=== PATIENT | female | born 1990 | race Caucasian/White ===

== ENCOUNTER → 2018-05-22 16:25 | Outpatient (CLI) | payer OTHER, SELFPAY ==
[2018-05-22 18:00] LABS: Basophils % 0.3 % (0.1-2.0); Eosinophils # 0.2 K/mm3 (0.0-0.4); Lymphocytes # 1.7 K/mm3 (0.7-4.5); Lymphocytes % 27.3 K/mm3 (10-50); Mean Corpuscular HGB Conc 33.2 g/dL (31.8-35.4); Mean Corpuscular Hemoglobin 28.8 pg (27.0-31.2); Mean Corpuscular Volume 86.7 fl (81-99); Mean Platelet Volume 7.5 fl (7.4-10.4); Monocytes # 0.3 K/mm3 (0.1-1.0); Monocytes % 4.6 % (1.7-9.3); Neutrophils # 4.1 K/mm3 (1.8-7.8); Neutrophils % 64.9 % (37.0-80.0); Platelet Count 227 K/mm3 (142-424); White Blood Count 6.4 K/mm3 (4.8-10.8)
[2018-05-22 19:54] LABS: Thyroid Stimulating Hormone 2.01 uIU/ml (0.358-3.740)
[2018-05-24 12:40] LABS: HIV Screen 4th Generation wRfx Non Reactive (Non Reactive); Hepatitis B Surface Antigen Negative (Negative); Rapid Plasma Reagin Ab Titer Non Reactive (NonRea<1:1); Rubella Antibodies, IgG 2.76 index (Immune >0.99)
== END ==
PROVIDERS: Visit Provider Obstetrics & Gynecology
DX: Z34.90 Encounter for supervision of normal pregnancy, unspecified, unspecified trimester (principal)
CPT/HCPCS: 36415; 84443; 85025; 86592; 86703; 86762; 86850; 87340; G0432

== ENCOUNTER → 2018-05-29 17:11 | Outpatient (CLI) | payer OTHER, SELFPAY ==
[2018-05-29 19:11] LABS: Amphetamine/Metha Screen,Urine Negative ng/mL (<1000); Barbiturates Screen,Urine Negative ng/mL (<200); Benzodiazepines Screen,Urine Negative ng/mL (<200); Cannabinoid Screen,Urine Negative ng/mL (<50); Cocaine Screen,Urine Negative ng/mL (<300); Methadone Screen,Urine Negative ng/mL (<300); Opiate Screen,Urine Negative ng/mL (<300); Phencyclidine Screen,Urine Negative ng/mL (<25)
== END ==
PROVIDERS: Visit Provider Obstetrics & Gynecology
DX: Z34.90 Encounter for supervision of normal pregnancy, unspecified, unspecified trimester (principal)
CPT/HCPCS: 80305

== ENCOUNTER → 2018-09-25 09:32 | Outpatient (CLI) | payer OTHER, SELFPAY ==
[2018-09-25 10:16] LABS: Glucose,Fasting 86 mg/dL (60-105)
[2018-09-25 11:28] LABS: Glucose 1 Hour 120 mg/dL (74-106)
== END ==
PROVIDERS: Visit Provider Obstetrics & Gynecology
DX: Z34.90 Encounter for supervision of normal pregnancy, unspecified, unspecified trimester (principal)
CPT/HCPCS: 36415; 82951

== ENCOUNTER 2018-10-03 17:57 | Outpatient (CLI) | payer OTHER, SELFPAY ==
[2018-10-03 18:10] VITALS: BMI 30.2
[2018-10-03 18:19] VITALS: BP 120/68; PULSE 98; RESP 20; TEMP 36.6; O2SAT 100
[2018-10-03 18:32] LABS: Microscopic, Urine URINE MICROSCOPIC (MICROSCOPIC)
[2018-10-03 18:34] LABS: Appearance,Urine CLEAR (Clear); Bilirubin,Urine Negative (Negative); Blood, Urine Negative (Negative); Color,Urine YELLOW (Yellow); Glucose,Urine (UA) Negative (Negative); Ketones,Urine Negative (Negative); Leukocyte Esterase,Urine Negative (Negative); Nitrate,Urine Negative (Negative); PH,Urine 5.5 (5.0-8.5); Protein,Urine Negative (Negative); Specific Gravity, Urine >= 1.030 (1.005-1.030); Urobilinogen,Urine 0.2 EU/dl (0.2)
[2018-10-03 18:42] LABS: Amphetamine/Metha Screen,Urine Negative ng/mL (<1000); Barbiturates Screen,Urine Negative ng/mL (<200); Benzodiazepines Screen,Urine Negative ng/mL (<200); Cannabinoid Screen,Urine Negative ng/mL (<50); Cocaine Screen,Urine Negative ng/mL (<300); Methadone Screen,Urine Negative ng/mL (<300); Opiate Screen,Urine Negative ng/mL (<300); Phencyclidine Screen,Urine Negative ng/mL (<25)
[2018-10-03 19:02] LABS: Fetal Fibronectin (Rapid) Negative (Negative)
[2018-10-03 19:09] LABS: Bacteria,Urine 2+ /lpf; RBC,Urine Occasional #/hpf (0-3)
[2018-10-10 06:46] LABS: Buprenorphine, Urine Positive (Cutoff=10)
== END 2018-10-03 19:42 | disposition home or self-care (01) ==
LOC: OBOUT 18:00 → OB 18:00
PROVIDERS: PCP Nurse Practitioner Family; Visit Provider Nurse Practitioner Obstetrics & Gynecology
DX: O26.893 Other specified pregnancy related conditions, third trimester (principal); Z3A.31 31 weeks gestation of pregnancy; R10.9 Unspecified abdominal pain
CPT/HCPCS: 59025; 80305; 80307; 81001; 82731; 87086

== ENCOUNTER → 2018-10-30 14:05 | Outpatient (CLI) | payer OTHER, SELFPAY | PROVIDERS: Visit Provider Obstetrics & Gynecology | DX: Z34.90 Encounter for supervision of normal pregnancy, unspecified, unspecified trimester (principal) | CPT/HCPCS: 86403 ==

== ENCOUNTER → 2018-11-06 12:50 | Outpatient (CLI) | payer OTHER, SELFPAY ==
--- NOTE | 2018-11-06 12:52 | US_ITS ---
US OB biophysical profile: Indication: ITS.REASON: weight loss in third trimester ORDERING PHYSICIAN: Dakotah Moore MD PATIENT AGE: 28 years FINDINGS: The following parameters are obtained: Average ultrasound age is 35 weeks 6 days. Estimated due date by ultrasound is 12/05/2018. Estimated weight is 2746 g which is 36 percentile BPD: 36 weeks 0 days OFD: 37 weeks 2 days HC: 35 weeks 6 days AC: 36 weeks 1 day FL: 35 weeks 0 days heart rate: 132 bpm. HC/AC: 0.99 Cephalic index: 79% FL/BPD: 77% FL/AC: 21% Amniotic fluid index: 14 cm Qualitative AFV: 2 breathing movements: 2 Gross body movements: 2 Tone: 2 Biophysical profile score: 8/8 No obvious anomalies evident. Placenta: Posterior and grade 1 Cervix: Appears closed and measures 3.4 cm IMPRESSION: There is a single live fetus which is in cephalic presentation with an average ultrasound age of 35 weeks and 6 days. All parameters correlate. Estimated weight is 2746 g which is 36 percentile Biophysical profile is 8 of 8 with normal amniotic fluid volume
== END ==
PROVIDERS: PCP Obstetrics & Gynecology; Visit Provider Obstetrics & Gynecology
DX: Z34.90 Encounter for supervision of normal pregnancy, unspecified, unspecified trimester (principal)
CPT/HCPCS: 76815; 76819

== ENCOUNTER 2018-11-15 13:49 | Inpatient (IN) ==
[2018-11-15 14:28] LABS: Basophils % 0.3 % (0.1-2.0); Eosinophils # 0.1 K/mm3 (0.0-0.4); Eosinophils % 0.9 % (0.1-12.0); Hematocrit 34.5 % (37.0-47.0); Hemoglobin 11.9 g/dL (12.2-16.2); Lymphocytes # 1.7 K/mm3 (0.7-4.5); Lymphocytes % 20.7 % (10-50); Mean Corpuscular HGB Conc 34.6 g/dL (31.8-35.4); Mean Corpuscular Hemoglobin 28.2 pg (27.0-31.2); Mean Corpuscular Volume 81.5 fl (81-99); Monocytes # 0.3 K/mm3 (0.1-1.0); Monocytes % 3.2 % (1.7-9.3); Neutrophils # 6.1 K/mm3 (1.8-7.8); Neutrophils % 74.8 % (37.0-80.0); Platelet Count 301 K/mm3 (142-424); Red Blood Count 4.24 M/mm3 (4.20-5.40); Red Cell Distribution Width 12.7 % (11.5-17.5); White Blood Count 8.2 K/mm3 (4.8-10.8)
[2018-11-15 14:47] LABS: Microscopic, Urine URINE MICROSCOPIC (MICROSCOPIC)
[2018-11-15 14:52] LABS: Appearance,Urine CLEAR (Clear); Blood, Urine Negative (Negative); Color,Urine YELLOW (Yellow); Glucose,Urine (UA) Negative (Negative); Ketones,Urine TRACE (Negative); Leukocyte Esterase,Urine Negative (Negative); Protein,Urine TRACE (Negative); Specific Gravity, Urine >= 1.030 (1.005-1.030)
[2018-11-15 14:59] LABS: Bilirubin,Urine 1+ (Negative)
[2018-11-15 15:17] LABS: Amphetamine/Metha Screen,Urine Negative ng/mL (<1000); Barbiturates Screen,Urine Negative ng/mL (<200); Benzodiazepines Screen,Urine Negative ng/mL (<200); Cannabinoid Screen,Urine Negative ng/mL (<50); Cocaine Screen,Urine Negative ng/mL (<300); Methadone Screen,Urine Negative ng/mL (<300); Opiate Screen,Urine Negative ng/mL (<300); Phencyclidine Screen,Urine Negative ng/mL (<25)
[2018-11-15 16:00] LABS: Squamous Epithelial Cell,Urine Occasional #/hpf (0-5); WBC,Urine Occasional #/hpf (0-3)
[2018-11-15 16:01] LABS: Bacteria,Urine 1+ /lpf; Mucus,Urine Trace /lpf
--- NOTE | 2018-11-15 16:18 | Progress Note ---
[facility] Anesthesia Checklist - Patient Identification Patient Identification: Arm Band, Verbal (Name & ) - Structural Data Admitted From: Inpatient Planned Operative Procedure/s: csection Consent for Planned Operative Procedure(s) Verified: Yes Verified Documents: History and Physical - NPO Status Verified Time NPO: 00:00 - Additional verifications Patient : Yes Anesthesia Reactions: No Hx Blood Transfusions: No Blood Transfusion Reaction: No Cephalosporin Allergy: No Previous Colonoscopy: No - Cardiovascular Assessment Heart Sounds: S1 & S2 Pulse Strength: Baseline Pulse Rhythm: Regular Peripheral Edema: No - Airway Assessment C-Spine Mobility Assessed: Yes TMJ Mobility Assessed: Yes Dentition: Good Dentition - Neurological Assessment Level of Consciousness: Awake, Alert, Appropriate Hx Seizures: No Numbness or tingling in extremities: No - Anesthesia Plan Anesthesia Risk discussed: Yes Anesthesia Plan: Verified ASA Class: II Anesthesia Type: Spinal [facility] History I have reviewed the patient's past medical history: Yes Medical History: Reports:: Anxiety *Have you ever received a pneumonia vaccine?: No *Have you received a flu vaccine this season?: No Other Surgeries: Yes: , Other Amputation: No Fractures: No - *Social History Smoking Status: Current every day smoker Alcohol Intake: never Alcohol Intake Frequency:: other Substance Use Type: denies use *Occupational Status:: unemployed - Psychiatric History Pschychiatric History:: Reports:: Anxiety Family Hx:: No significant family history
--- NOTE | 2018-11-15 16:19 | Operative Note ---
Date of procedure: 11/15/18 Pre-op Diagnosis:: Term , oligo hydramnios, IUGR, hepatitis C positive, previous section, poor biophysical profile Post-op Diagnosis:: Term , oligo, IUGR, hepatitis C positive, previous section, poor biophysical profile Procedure performed:: Repeat lower segment transverse section Surgeon:: Domenic De La Cruz MD Well Testing Operator(s):: Dr. Zepeda PRESS CLIPPINGS CUTTER AND PASTER:: Abel Stout Anesthesia: spinal Estimated blood loss (mL): 600 Clinical Note:: She is a 28-year-old 2 para 1 who was 37+ weeks gestational age. She was seen at [facility] today and they suggested she be delivered today. She was scheduled for November 28 for repeat lower segment transverse section. She has had a previous section. She is group B Streptococcus positive. She also has hepatitis C. She is taking Subutex 18 mg daily. After having discussed the risks and benefits would like to perform a repeat lower segment transverse section. Operative findings:: She delivered a liveborn male child at 3:41 PM in the afternoon of November 15, 2018. The baby had Apgars of 9 at 1 minute and 9 at 5 minutes. Ovaries and tubes appeared normal. She did have some mental adhesions along the peritoneum on both the left and right sides. Amniotic fluid was clear. Operative note:: She was taken to the operating room where spinal anesthesia was found be adequate. She was prepped and draped in normal sterile fashion in the supine position with a leftward tilt. A Oneil catheter was in the bladder. A Pfannenstiel skin incision was made with knife then carried through to the underlying layer of fascia with cautery. The fascia was opened in the midline with cautery and extended laterally using Watkins scissors. Rhame clamps were applied to the superior aspect of the fascial incision which was tented up and the underlying rectus muscles dissected off using cautery. The Mauro clamps were then applied to the inferior aspect of the fascial incision which in a similar fashion was tented up and the underlying rectus muscles dissected off using cautery. The rectus muscles were then in the midline, the peritoneum identified, and entered sharply with Metzenbaum scissors. This incision was then extended superiorly and inferiorly with cautery. We had good visualization of the bladder inferiorly. The bladder peritoneum was then opened in the midline and extended laterally using Metzenbaum scissors. A bladder flap was created digitally. Transverse incision was made through the uterine muscle to the amnion. This incision was then extended laterally using fingers traction. The amnion was entered sharply with knife. There was clear amniotic fluid. The 's head was then delivered atraumatically. A loose nuchal cord was then reduced. This was followed by the anterior shoulder and the rest of the 's body atraumatically. The oropharynx and nasopharynx were bulb suctioned. The infant was then handed off to Dr. Wilson who assigned Apgars of 9 at 1 minute and 9 at 5 minutes. We then obtained cord blood as well as cord pH. Using gentle traction on the cord and countertraction on the fundus I was able to easily deliver the placenta intact. It had a normal three-vessel cord. The uterus was then cleared of clots and debris . The uterus was then exteriorized from the abdominal cavity. There were some adhesions of omentum along the anterior aspect of the uterus and laterally on the uterus and these were taken down with cautery. The uterine incision was then closed using running 0 Vicryl suture in a locked fashion. A second layer of the same suture was used to imbricate the first layer. The bladder peritoneum was then closed using running 2-0 Vicryl suture in a locked fashion. The gutters and cul-de-sac were then cleared of clots and debris . The uterus was then returned to the abdominal cavity. Once again hemostasis was assured. The peritoneum was grasped with Jen clamps and closed using running 2-0 Vicryl suture. The rectus muscles were then reapproximated using running 0 Vicryl suture. The fascia was closed using running #1 Vicryl suture. The subcutaneous tissues were then irrigated with warm water followed by closure Sander's fascia using running 2-0 Monocryl suture. The skin was closed with terry. I then cleaned the skin with Hibiclens. Sterile dressings were applied. She tolerated the procedure well and was taken to the recovery room in excellent condition. All sponges minute and needle counts were correct. Estimate a blood loss was approximately 600 mL. Condition: stable Disposition: PACU Specimens:: Products of conception Complications:: None
--- NOTE | 2018-11-15 16:20 | Progress Note ---
[facility] Anesthesia Record Part II Discharge Time: 16:44 Destination: Obstetric PACU nurse assessment reviewed?: Yes Patient Condition:: Good Anesthesia Complications:: None Swallowing reflex intact?: Yes Cyanosis?: No
--- NOTE | 2018-11-15 16:20 | Progress Note ---
[facility] Anesthesia Record Part I Intake, IV Amount: 1,900 Estimated blood loss (mL): 600 Urine output (mL): 50 Blood Products used (#): none Blood Pressure: 118/55 SaO2: 100 Pulse Rate: 75 Respiratory Rate: 20 Temperature: 97.6 F Patient is:: Awake, Stable Stable to PACU at:: 16:14
[2018-11-16 06:41] LABS: Basophils % 0.2 % (0.1-2.0); Eosinophils # 0.1 K/mm3 (0.0-0.4); Eosinophils % 0.6 % (0.1-12.0); Hematocrit 31.6 % (37.0-47.0); Lymphocytes # 1.3 K/mm3 (0.7-4.5); Lymphocytes % 16.1 % (10-50); Mean Corpuscular HGB Conc 33.6 g/dL (31.8-35.4); Mean Corpuscular Hemoglobin 27.8 pg (27.0-31.2); Mean Corpuscular Volume 82.9 fl (81-99); Monocytes # 0.4 K/mm3 (0.1-1.0); Monocytes % 4.5 % (1.7-9.3); Neutrophils # 6.4 K/mm3 (1.8-7.8); Neutrophils % 78.6 % (37.0-80.0); Platelet Count 210 K/mm3 (142-424); Red Blood Count 3.82 M/mm3 (4.20-5.40); Red Cell Distribution Width 12.7 % (11.5-17.5); White Blood Count 8.1 K/mm3 (4.8-10.8)
[2018-11-16 06:56] LABS: Hemoglobin 10.7 g/dL (12.2-16.2)
--- NOTE | 2018-11-16 08:48 | Progress Note ---
Internal Medicine - PN: Subj *Date: 11/16/18 *Time: 08:45 Interval history: She is doing better this morning. She still has this rash and I think that it is probably scabies. It is exquisitely itchy and covers her entire body. We will plan to treat her with permethrin cream today. Exam Vital signs and Labs for Last 24 Hours: Temp Pulse Resp BP Pulse Ox 98.1 F 71 18 112/65 99 11/15/18 16:44 11/15/18 16:44 11/15/18 16:44 11/15/18 16:44 11/15/18 16:44 Laboratory Results - last 24 hr 11/15/18 14:00: Urine Color Yellow, Urine Appearance Clear, Urine pH 6.0, Ur Specific [place] >= 1.030, Urine Protein Trace, Urine Glucose (UA) Negative, Urine Ketones Trace, Urine Blood Negative, Urine Nitrate Negative, Urine Bilirubin 1+ A, Urine Urobilinogen 1.0, Ur Leukocyte Esterase Negative, Urine WBC Occasional, Ur Squamous Epith Cells Occasional, Urine Bacteria 1+, Urine Mucus Trace 11/15/18 14:00: Urine Opiates Screen Negative, Urine Methadone Screen Negative, Ur Barbituates Screen Negative, Ur Phencyclidine Scrn Negative, Ur Amphetamines Screen Negative, U Benzodiazepines Scrn Negative, Urine Cocaine Screen Negative, U Marijuana (THC) Screen Negative 11/15/18 14:16: WBC 8.2, RBC 4.24, Hgb 11.9 L, Hct 34.5 L, MCV 81.5, MCH 28.2, MCHC 34.6, RDW 12.7, Plt Count 301, MPV 8.0, Neut % (Auto) 74.8, Lymph % (Auto) 20.7, [place] % (Auto) 3.2, Eos % (Auto) 0.9, Baso % (Auto) 0.3, Neut # (Auto) 6.1, Lymph # (Auto) 1.7, [place] # (Auto) 0.3, Eos # (Auto) 0.1, Baso # (Auto) 0.0 11/15/18 14:16: Blood Type O Positive, Antibody Screen Negative 11/15/18 15:44: Cord ABG pH 7.35 11/16/18 06:25: WBC 8.1, RBC 3.82 L, Hgb 10.7 L D, Hct 31.6 L, MCV 82.9, MCH 27.8, MCHC 33.6, RDW 12.7, Plt Count 210 D, MPV 8.0, Neut % (Auto) 78.6, Lymph % (Auto) 16.1, [place] % (Auto) 4.5, Eos % (Auto) 0.6, Baso % (Auto) 0.2, Neut # (Auto) 6.4, Lymph # (Auto) 1.3, [place] # (Auto) 0.4, Eos # (Auto) 0.1, Baso # (Auto) 0.0 I & O for Last 24 hours: Intake & Output 11/13/18 11/14/18 11/15/18 11/16/18 11:59 11:59 11:59 11:59 Intake Total 2159 / 2159 Output Total 50 / 50 Balance 2109 / 2109 Weight 170 lb 0.01 oz - Constitutional no acute distress - *Routine HEENT Exam Head: Present: normocephalic Eye: Present: EOMI, PERRL ENT: Present: mucous membranes moist - *Routine Skin Exam Present: intact (good color) Comments: She has a papular rash that has small lesions that have scabs from her constant pruritus and itching. Assessment and Plan (1) Previous section Current visit: Yes Status: Acute Category: Surgical Code(s): Z98.891 - Wi story of uterine scar from previous surgery (2) Delivery by section of full-term Current visit: Yes Status: Acute Category: Medical Code(s): O82 - Encounter for delivery without indication (3) Scabies infestation Current visit: Yes Status: Acute Category: Medical Code(s): B86 - Scabies - Assessment and plan all Dx Assessment and Plan for all problems:: We will go ahead and treat her with permethrin cream today. Hopefully this should help with her rash. It does not look like PUPPP S to me. We will plan to send her home in 48 hours. She is otherwise doing well.
[2018-11-17 08:54] VITALS: BP 109/65
--- NOTE | 2018-11-17 12:51 | Progress Note ---
Internal Medicine - PN: Subj *Date: 11/17/18 *Time: 12:49 Interval history: She is doing better today. She was seen by social media director last night and apparently all is well with social media director. She also has an arrest warrant and will be arrested when she is discharged tomorrow. Used her permethrin cream and she said it burned so we are going to try mixing it with lidocaine. Otherwise she is doing well and her pain is well controlled. Her lochia is normal. Exam Vital signs and Labs for Last 24 Hours: Temp Pulse Resp BP Pulse Ox 98.4 F 86 18 109/65 L 100 11/17/18 08:00 11/17/18 08:00 11/17/18 08:00 11/17/18 08:00 11/16/18 20:40 I & O for Last 24 hours: Intake & Output 11/15/18 11/16/18 11/17/18 11/18/18 11:59 11:59 11:59 11:59 Intake Total 2160 / 2160 Output Total 50 / 50 Balance 0 / 2110 Weight 170 lb 0.01 oz Microbiology Reports for the Last 24 Hours: Microbiology 11/16/18 12:31 Head - Abscess Gram Stain - Final 11/16/18 12:31 Head - Abscess Wound Culture - Preliminary - Constitutional no acute distress Assessment and Plan (1) Previous section Current visit: Yes Status: Acute Category: Surgical Code(s): Z98.891 - History of uterine scar from previous surgery (2) Delivery by section of full-term Current visit: Yes Status: Acute Category: Medical Code(s): O82 - Encounter for delivery without indication (3) Scabies infestation Current visit: Yes Status: Acute Category: Medical Code(s): B86 - Scabies (4) Hepatitis C antibody positive in blood Current visit: Yes Status: Acute Category: Medical Code(s): R76.8 - Other specified abnormal immunological findings in serum - Assessment and plan all Dx Assessment and Plan for all problems:: She will try the permethrin cream with lidocaine. We will plan to discharge her home tomorrow. She is doing well. She is bottlefeeding.
--- NOTE | 2018-11-18 09:11 | Discharge Summary ---
General - General Admission date:: 11/15/18 Discharge date: 11/17/18 HPI HPI: She is a 28-year-old 2 now para 2 who was 37+ weeks gestational age. She was seen at for a rash and they found that she had oligohydramnios with a small for gestational age and a biophysical profile of 4 out of 8. They recommended immediate delivery. As result that the patient came here to labor and delivery. Hospital Course Hospital Course: On November 15, 2018 she underwent a repeat lower segment transverse section. She delivered a liveborn male child at 3:41 PM in the afternoon of November 15, 2018. The baby weighed 6 pounds 3 ounces and was 19 inches long. He had Apgars of 9 at 1 minute and 9 at 5 minutes. Post I felt that her rash was likely scabies and she has received permethrin cream. On the evening of her first postoperative day the police arrived and said that there was a nationwide warrant for her arrest. Since she was only 24 hours postdelivery I elected to keep her in hospital for the normal amount of time. She subsequently left without signing out or being discharged on Saturday, November 17, 2018 in the evening. She was told that if she left she could not be readmitted. Despite this she left. She left her baby as well. She was seen by executive secretary social welfare and since she was being apprehended after her discharge from hospital and she had made arrangements for 1 of her friends to look after the baby. At this point in time the baby is being held by executive secretary social welfare. She apparently has been seen and a Subutex clinic and has been taking Subutex throughout the . She is known to have hepatitis C. She has had a long history of drug abuse in the past. She has been incarcerated in the past. At this point in time we do not know where she is and she is discharged from the hospital. She did not sign any AMA papers. She did not receive any prescriptions. She has O+ blood, she was rubella immune and group B streptococcus positive. Her office services clerk is Dr. Wilson. Rhogam Administration: Not Indicated Objective Vital signs: Temp Pulse Resp BP Pulse Ox 98.4 F 86 18 109/65 L 100 11/17/18 08:00 11/17/18 08:00 11/17/18 08:00 11/17/18 08:00 11/16/18 20:40 no acute distress Results Labs on day of discharge: Preliminary micro results at discharge 11/16/18 12:31 Wound Culture - Preliminary Head - Abscess Gram Positive Cocci DS: Diagnosis - Discharge Diagnosis (1) Previous section Status: Acute (2) Delivery by section of full-term infant Status: Acute (3) Scabies infestation Status: Acute (4) Hepatitis C antibody positive in blood Status: Acute Discharge Plan - Patient Discharge Instructions ACTIVITY: No heavy lifting DIET: continue same diet - Follow up Plan Disposition: Left Against Medical Advice Home Medications: Home Medications Medication Instructions Recorded Confirmed Type Buprenorphine HCl [Subutex 8mg ODT] 8 mg SL DAILY MDD 0 10/03/18 11/16/18 History Buprenorphine HCl 10 mg SL 1700 11/16/18 11/16/18 History Prescriptions/Medication Reconciliation: No Action Buprenorphine HCl [Subutex 8mg ODT] 8 mg SL DAILY MDD 0 Buprenorphine HCl 10 mg SL 1700
== END 2018-11-17 20:20 | disposition left against medical advice (07) | DRG 787 ==
LOC: OB 13:49
PROVIDERS: ADMIT Nurse Practitioner Obstetrics & Gynecology; ATTEND Nurse Practitioner Obstetrics & Gynecology
CPT/HCPCS: 36415; 59025; 80305; 80307; 81001; 82800; 85025; 86850; 87070; 87077; 87186; 87205; J0571; J2405

== ENCOUNTER 2020-12-09 02:00 | Outpatient (CLI) | payer OTHER, SELFPAY ==
[2020-12-09 02:55] VITALS: BMI 30.9
[2020-12-09 02:57] VITALS: BP 140/89; PULSE 92; RESP 19; TEMP 36.9; O2SAT 95; BMI 30.9
== END 2020-12-09 02:50 | disposition home or self-care (01) ==
LOC: OBOUT 02:03 → OB 02:04
PROVIDERS: Visit Provider Nurse Practitioner Obstetrics & Gynecology
DX: O36.8120 Decreased fetal movements, second trimester, not applicable or unspecified (principal); Z3A.26 26 weeks gestation of pregnancy

== ENCOUNTER → 2021-06-30 10:34 | Outpatient (CLI) | payer OTHER, SELFPAY | PROVIDERS: Visit Provider Obstetrics & Gynecology | DX: Z34.90 Encounter for supervision of normal pregnancy, unspecified, unspecified trimester (principal) | CPT/HCPCS: 36415; 84702 ==

== ENCOUNTER → 2021-07-10 10:43 | Outpatient (CLI) | payer OTHER, SELFPAY ==
--- NOTE | 2021-07-10 10:44 | US_ITS ---
PROCEDURE: US OB <= 14 WEEKS FETUS CLINICAL INDICATION: Dates COMPARISON: US OBBIO US OB biophysical profile from 11/06/2018 FINDINGS: An intrauterine gestational sac is present with a pole with a crown-rump length of 2.27cm correlating to gestational age of 9weeks. heart tones are present with an FHR of 174bpm. Yolk sac is noted. There is a 3 cm simple appearing left ovarian cyst. No cul-de-sac fluid IMPRESSION: Live IUP at 9 weeks 0 days. Estimated due date by Ultrasound is 02/12/2022 Dictated by: Eb Timmons MD 07/10/2021 11:46 Eb Timmons MD in OV 07/10/2021 11:46
== END ==
PROVIDERS: PCP Nurse Practitioner Family; Visit Provider Obstetrics & Gynecology
DX: Z34.90 Encounter for supervision of normal pregnancy, unspecified, unspecified trimester (principal)
CPT/HCPCS: 76801

== ENCOUNTER 2022-02-02 12:11 | Observation (INO) | payer OTHER, SELFPAY ==
[2022-02-02 12:18] VITALS: BP 175/79; PULSE 66; RESP 20; TEMP 36.3; O2SAT 100; BMI 27.3; BMI 27.4
--- NOTE | 2022-02-02 13:32 | HMH.DN ---
- Delivery Note Delivery Date:: 02/02/22 Delivery Time:: 11:25 Anesthesia Type: None Was labor medically induced?: No Induction method: none Gestational age (weeks): 38 delivered prior to 39 weeks?: Yes Justification for early elective delivery:: Active Labor Infant Gender: Female Delivery Procedure:: She is a 31-year-old 8 para 3 aborta 4 who was 38 weeks gestational age. She has had minimal care. She was seen at about [address] Azul and had an ultrasound at 9 weeks that confirmed her dates. Her due date was February 12 according to an early ultrasound. Patient apparently has been in rehab for the last couple of months. She was positive for methamphetamines at her first visit. Its not known whether she has had any further care since her first visit. She has a history of PIH. She has a history of delivering her last baby similarly before arriving to hospital. She had 2 previous sections prior to this. She began having contractions this morning at home and ruptured her membranes. She then rapidly progressed to full dilation and delivered in the car on the way here to the hospital. The baby delivered at approximate 11:25 AM. On arrival at the hospital the baby was taken immediately to labor and delivery and the patient was brought up to labor and delivery shortly thereafter on a stretcher. The baby's Apgars at 1 and 5 minutes were not known but at 10 minutes of age the baby's Apgars were 9. She was a liveborn female child. The patient received IM oxytocin and using gentle traction on the cord and countertraction on the fundus I was able to easily deliver the placenta intact at 12:00. He had a normal three-vessel cord. There were no perineal or vaginal lacerations. At this point time we are awaiting her blood work results since we do not know her blood type. She is hepatitis C positive from some blood work that was done last year. Estimated blood loss was approximately 200 cc. Her turret lathe tender is Dr. Killian. Placental Delivery Description: Spontaneous
--- NOTE | 2022-02-02 13:36 | HMH.OBAPHP ---
OB - H&P: HPI Antepartum - History of Present Illness Chief complaint: Delivery outside the hospital History of present illness: She is a 31-year-old 8 para 3 aborta 4 who was 38+ weeks gestational age. She was having contractions earlier this morning and spontaneously ruptured her membranes and rapidly delivered a liveborn female child. The baby delivered in the car in the parking lot prior to admission to the hospital. Abigail has had minimal care and is a difficult historian. She was seen once by Dr. Azul at 10 weeks gestational age. At that time she was positive for methamphetamines and Abigail states that she was in rehab for the last couple of months at the [facility]. She has a history of -induced hypertension and says she was prescribed antihypertensives by her family doctor but its not clear whether she has been taking any of them. She is hepatitis C positive. Her blood type is unknown. She has had 2 previous sections followed by a similar early delivery in her last . She plans to put this baby up for adoption. The father of the baby is not involved. - History of Present Criteria for establishing EDC:: LMP confirmed by 1st trimester US care: none Ultrasounds: normal 1st trimester US Obstetrical complications: previous - Labs Blood type: unknown Rubella: unknown RPR/VDRL: unknown GBS status: unknown HBsAG: unknown Narrative: She is hepatitis C positive from earlier blood work. [facility] History I have reviewed the patient's past medical history: Yes Medical History: Reports:: Anxiety Denies:: Cancer, Diabetes Mellitus Type 1, Diabetes Mellitus Type 2, Internal Pacemaker, MRSA, Seizures *Have you ever received a pneumonia vaccine?: No *Have you received a flu vaccine this season?: No Other Medical History: Denies: Blood Transfusion Reaction Laterality Cases: Right: Total Hip Replacement Other Surgeries: Yes: , Other. No: Pacemaker Amputation: No Fractures: No - *Social History Smoking Status: Current every day smoker Tobacco Type: cigarettes # Packs/Day (cigarettes): 1 Alcohol Intake: never Alcohol Intake Frequency:: other Substance Use Type: heroin, methamphetamine *Occupational Status:: unemployed Housing: house Household Members: none *Travel in the last 8 weeks: None - Psychiatric History Pschychiatric History:: Reports:: Anxiety Family Hx:: No significant family history Review of Systems - Review of Systems Review of systems:: pertinent systems reviewed and negative unless documented below Meds Home Medications Medication Instructions Recorded Confirmed Type furosemide 20 mg tablet 20 mg PO DAILY tab 04/13/21 07/23/21 History lithium carbonate 300 mg 300 each PO BID 04/13/21 07/23/21 History tablet,extended release buPROPion HCL [Wellbutrin Sr] 100 mg PO DAILY 06/04/21 07/23/21 History ferrous sulfate 325 mg (65 mg 325 mg PO DAILY #30 tab 07/23/21 07/23/21 Rx iron) tablet ondansetron 4 mg disintegrating 4 mg PO Q4H PRN #30 tab 07/23/21 07/23/21 Rx tablet pediatric multivitamin no.76 2 tab PO DAILY tab 07/23/21 07/23/21 History Allergies Allergy/AdvReac Type Severity Reaction Status Date / Time acetaminophen [From Lortab] Allergy Swelling Verified 06/04/21 13:57 of Lip/Tongue/Throat hydrocodone [From Lortab] Allergy Swelling Verified 06/04/21 13:57 of Lip/Tongue/Throat OB - H&P: Exam - Constitutional no acute distress - Routine HEENT Exam Head: Present: normocephalic Eye: Present: EOMI, PERRL ENT: Present: mucous membranes moist - Routine Neck Exam Present: supple, full ROM - Routine Respiratory Exam Absent: accessory muscle use (good air entry bilaterally), respiratory distress, wheezes, crackles - Routine Cardiovascular Exam Present: RRR. Absent: murmur - Routine Abdominal Exam Present: soft, normoactive bowel sounds. Absent: tend
--- NOTE | 2022-02-02 14:38 | SW/DCPLANNER ---
Addendum entered by Bhakti Menard 02/08/22 11:04: I have attempted to contact assigned CPS worker (Josefina [phone]) to be able to fax cord screen results: no answer at this time/VM left to return my phone call. Addendum entered by Bhakti Menard 02/03/22 12:09: This case did meet criteria per Central Intake. Addendum entered by Bhakti Menard 02/03/22 09:54: ID# [id number] did NOT meet criteria per Sathish desai/ Central Intake. I did make a new report due to patient leaving AMA ID#[id number]. Original Note: I received a referral for this patient regarding: one visit this , drug use in and is interested in adoption. Patient stated that female (no name at this time) was born today [birth year] in [address] of [facility] parking lot. Patient stated that she has been in and out of rehab through [facility]. Patient recently left rehab program in October of 2021 due to a in the family. Patient stated that she will need a notary during hospitalization due to having a mutual agreement with Deisy (07/06/82) and Juanita (02/12/77) Jamarcus to adopt this infant. Patient does not have custody of three other children. This situation was report to Central Intake ID# [id number].
[2022-02-02 16:15] LABS: Coronavirus 19, PCR Not Detected (NotDetected); Influenza A, PCR Not Detected (NotDetected); Influenza B, PCR Not Detected (NotDetected)
[2022-02-02 20:00] VITALS: BP 139/89; PULSE 104; RESP 20; O2SAT 100
--- NOTE | 2022-02-02 22:31 | PC.NURSE ---
UPON THIS NURSE'S ARRIVAL TO FLOOR, PT SITTING UP IN BED WITH TWO VISITORS AT BEDSIDE. NB LYING IN OPEN CRIB AT BEDSIDE WELL. PT CONTINUALLY EXPRESSED HER NEED TO LEAVE THE UNIT TONIGHT, OR SHE WOULD LOSE EVERYTHING SHE HAS WORKED SO HARD FOR. THIS NURSE COMMUNICATED TO PT AND VISITORS, THAT IF THEY LEAVE TONIGHT, THEY WILL BE UNABLE TO GET INFORMATION ON NB. THIS NURSE ALSO DISCUSSED RISKS OF LEAVING AMA WITH PT AND VISITORS, INCLUDING RISK OF HEMORRHAGE AND PRE-ECLAMPSIA. PT AND VISITORS V/U. PT AND VISITORS HAD A GOOD UNDERSTANDING OF THINGS, AND HAD NO FURTHER QUESTIONS. STATED THEY WILL GO TO [facility] TOMORROW TO MEET WITH ACTIVITIES ASSISTANT AND WORK ON PAPERWORK. PT DID AGREE TO SIGN AMA FORM. PT LEFT AMA, AMBULATING INDEPENDENTLY OFF UNIT WITH VISITORS AT 21:45, TO PRIVATE VEHICLE.
--- NOTE | 2022-02-03 08:44 | HMH.DCSUM ---
General - General Admission date:: 02/02/22 Discharge date: 02/02/22 HPI HPI: She is a 31-year-old 10 para 4 aborta 6 who was 38 and 4 weeks gestational age. Her dates are secure with an early ultrasound. She had no care. She says she has been in rehab for the last couple of months. She came in in active labor and delivered in the parking lot in the car. Hospital Course Hospital Course: She arrived in the parking lot and delivered in the car on the way to the hospital. She delivered a liveborn female at approximately 11:25 AM on the morning of February 02, 2022. The baby weighed 5 pounds 10 ounces and had Apgars of 9 at 10 minutes of age. There were a couple who came with Abigail to the hospital and apparently they were supposed to adopt the baby. According to social media content manager they just met the patient that day. There has been no prior contact with respect to adoption. As result of that social media content manager go to keep the baby. The baby was positive for methamphetamine and the levels were beyond the level of the test it was so high. Her blood pressure was elevated on arrival in the 190/100 range however she refused IVs and refused IM magnesium sulfate. We explained to her that her elevated blood pressure could be as a result of -induced hypertension and she did not allow us to get any blood work. She denied a headache. She did admit to having PIH in previous pregnancies. Abigail has signed herself out AMA at about 9:30 PM on the evening of February 02, 2022. She was quite fidgety and we are concerned that she is continuing to do methamphetamines and with the baby's positive test for methamphetamines we are certain that Abigail continues to do this. She denied doing drugs and says she was recently in rehab. We could not get any blood work and the patient refused a urine sample. 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 She is known to have hepatitis C. Made multiple attempts and the patient finally told us to stop. She did sign in AMA release form and left the hospital. She has no follow-up plans. While hospitalized she did admit that she had not been taking lithium throughout her nor her Wellbutrin. She said she was taking Lasix. Its not clear when she received a prescription for this or whether she was even taking this. Rhogam Administration: Not Indicated Objective Vital signs: Temp Pulse Resp BP Pulse Ox 97.4 F L 104 H 20 139/89 100 02/02/22 12:18 02/02/22 20:00 02/02/22 20:00 02/02/22 20:00 02/02/22 20:00 no acute distress Results Labs on day of discharge: Labs from last 24 hours 02/02/22 15:53 SARS-CoV-2 (PCR) Not detected Influenza A Untype (PCR) Not detected Influenza Type B (PCR) Not detected DS: Diagnosis - Discharge Diagnosis (1) Bipolar 1 disorder Status: Acute (2) Hepatitis C antibody positive in blood Status: Acute (3) History of hip replacement Status: Acute Problem details: Right (4) History of substance abuse Status: Acute (5) Medication exposure during first trimester of Status: Acute Problem details: [place] (6) Positive urine drug screen Status: Acute Problem details: methamphetamines, amphetamines Repeat on 07/28/21- Positive (7) Previous section Status: Acute (8) Tobacco smoking complicating Status: Acute (9) History of pre-eclampsia Status: Acute Discharge Plan - Patient Discharge Instructions ACTIVITY: No heavy lifting DIET: continue same diet - Follow up Plan Disposition: Home, Self-Care Condition at discharge:: Stable Home Medications: Home Medications Medication Instructions Recorded Confirmed Type furosemide 20 mg tablet 20 mg PO DAILY tab 04/13/21 02/02/22 History lithium carbonate 300 mg 300 each PO BID 04/13/21 02/02/22 History tablet,extended release buPROPion HCL [Wellbut
== END 2022-02-02 21:45 | disposition left against medical advice (07) ==
PROVIDERS: Admitting Provider Nurse Practitioner Obstetrics & Gynecology; Visit Provider Nurse Practitioner Obstetrics & Gynecology
DX: Z39.0 Encounter for care and examination of mother immediately after delivery (principal); Z3A.38 38 weeks gestation of pregnancy; F31.9 Bipolar disorder, unspecified; F19.11 Other psychoactive substance abuse, in remission; O99.330 Smoking (tobacco) complicating pregnancy, unspecified trimester; F17.210 Nicotine dependence, cigarettes, uncomplicated; Z20.822 Contact with and (suspected) exposure to COVID-19; B19.20 Unspecified viral hepatitis C without hepatic coma
CPT/HCPCS: 59430; 88307; C9803; G0378; U0003; U0005

== ENCOUNTER 2022-05-21 20:04 | Emergency (ER) | payer SELFPAY ==
[2022-05-21 20:04] VITALS: BP 134/94; PULSE 103; RESP 16; TEMP 36.7; O2SAT 100; BMI 31.2
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
[2022-05-21 20:30] VITALS: BP 153/82; PULSE 110; O2SAT 100
[2022-05-21 21:00] VITALS: BP 137/85; PULSE 104; O2SAT 100
[2022-05-21 21:52] LABS: Urine Pregnancy, HCG Qual. Negative (Negative)
--- NOTE | 2022-05-21 21:54 | XR_ITS ---
PROCEDURE INFORMATION: Exam: XR Right Femur Exam date and time: 05/21/2022 10:02 PM Age: 31 years old Clinical indication: Pain; Hip; Right; Prior surgery; Surgery date: 6+ months; Surgery type: H/o RT pelvis surgery TECHNIQUE: Imaging protocol: Radiologic exam of the Right femur. Views: 2 views. COMPARISON: CR XR HIP RT 2-3V W/PELVIS 05/21/2022 10:01 PM FINDINGS: Bones/joints: Status post ORIF right pelvic fracture. Degenerative changes in the hip joint. No evidence of acute fracture. Soft tissues: Unremarkable. IMPRESSION: No evidence of acute fracture. If symptoms persist, recommend repeat radiograph in 5-7 days.
--- NOTE | 2022-05-21 21:54 | XR_ITS ---
PROCEDURE INFORMATION: Exam: XR Right Hip Exam date and time: 05/21/2022 10:01 PM Age: 31 years old Clinical indication: Hip pain; Right hip; Prior surgery; Surgery date: 6+ months; Surgery type: H/o RT pelvis surgery TECHNIQUE: Imaging protocol: Radiologic exam of the Right hip. Views: 2 or 3 views hip with pelvis when performed. COMPARISON: US OB <= 14 WEEKS FETUS 07/10/2021 10:51 AM FINDINGS: Bones/joints: Status post ORIF right pelvic fracture. Cortical step-off in the right inferior pubic ramus medially, cannot exclude acute fracture. Soft tissues: Unremarkable. IMPRESSION: Cortical step-off in the right inferior pubic ramus medially, cannot exclude acute fracture. Correlate with CT.
[2022-05-21 22:54] VITALS: BP 134/70; PULSE 79; RESP 19; TEMP 36.8; O2SAT 98
== END 2022-05-21 22:58 ==
PROVIDERS: Emergency Provider Family Medicine; PCP Nurse Practitioner Family
DX: M79.604 Pain in right leg (principal); W20.8XXA Other cause of strike by thrown, projected or falling object, initial encounter; Z88.6 Allergy status to analgesic agent; Z72.0 Tobacco use
CPT/HCPCS: 73502; 73552; 81025; 99283